=== PATIENT | male | born 1965 | race Caucasian/White ===

== ENCOUNTER 2016-10-02 19:27 | Emergency (ER) | payer BC ==
--- NOTE | 2016-10-02 20:44 | DIAGNOSTIC IMAGING REPORT ---
PROCEDURE: XR CHEST 2 VIEW INDICATION: CHEST PAIN TECHNIQUE: PA and lateral views. COMPARISON: None. FINDINGS: Allowing for overlying wires and electrodes, lungs are clear. Heart and mediastinum are normal. Thorax is normal. IMPRESSION: 1. Negative chest.
--- NOTE | 2016-10-02 22:02 | DIAGNOSTIC IMAGING REPORT ---
PROCEDURE: CTA THORAX WITH CONTRAST INDICATION: Chest pain and elevated D-dimer. TECHNIQUE: 88 ml of Isovue 370 was injected intravenously and axial images were obtained of the entire thorax with 3D sagittal and coronal MIP reconstructions. COMPARISON: Compared to chest x-ray earlier today (10/02/2016). FINDINGS: Lungs are clear. Pulmonary vessels are normal and there is no evidence of pulmonary embolus. Heart and mediastinum are normal. Thorax is normal. IMPRESSION: 1. Normal CT pulmonary arteriogram. No evidence of pulmonary embolus. 2. Findings discussed with Dr. Yash Hilton. All CT scans at this facility use dose modulation, iterative reconstruction, and/or weight-based dosing when appropriate to reduce radiation dose to as low as reasonably achievable.
--- NOTE | 2016-10-02 22:26 | ED NURSING NOTES ---
Clinical Report - Nurses [facility] [address] [place] [address] 10/02/2016 19:30 Patient: RACHELLE LEYVA TRIAGE Triage time 19:33. Chief Complaint: CHEST PAIN. --19:38 Crys Murillo R.N. 19:33 10/02/16. BP: 200/109. HR: 97. RR: 18. O2 saturation: 98%. Temp: 98.7 F (oral). Pain level now: 11/21. --19:38 Crys Murillo R.N. Weight: 118.8 kg stated. Height/Length: 72 inches Per Patient. BMI: 35.6. --19:36 Crys Murillo R.N. Medications None. --19:35 Crys Murlilo R.N. Allergies No Known Drug Allergy. --19:35 Crys Murillo R.N. History Arrived by private vehicle. Primary physician (Shira). This started last night. Reports experiencing sweating episodes. ( pt reports fatigue). No difficulty breathing or nausea. SOCIAL HX: Never smoker. Alcohol use; consumes beer occasionally. No drug use. --19:38 Crys Murillo R.N. ADDITIONAL SURGERIES: Hernia Repair. --19:36 Crys Murillo R.N. Interventions ID band on patient. --19:38 Crys Murillo R.N. PHYSICAL ASSESSMENT GENERAL / NEURO / PSYCH: Alert. Oriented X 4. Appears anxious. CVS: Normal sinus rhythm noted. Cardiac rhythm: normal sinus rhythm; (90). Heart sounds within normal limits. Pulses within normal limits. Capillary refill less than 2 seconds. EXTREMITIES: No lower extremity edema. --19:39 Crys Murillo R.N. NURSING PROGRESS NOTES 19:40 10/02/2016 Site #1 started via IV in the right antecubital space with an 20g angiocath, with aseptic technique and good blood return; one attempt. Blood drawn: rainbow set. Saline lock flushed with 10 mL saline. --19:40 Crys Murillo R.N. Patient gowned. Reassurance given. Two patient identifiers checked. Call light placed in reach. Side rails up x 1. Patient ready for evaluation- chart flagged. --19:41 Crys Murillo R.N. The patient is calm. --19:44 Crys Murillo R.N. 19:43 10/02/16. BP: 183/107. HR: 88. RR: 18. O2 saturation: 97%. Temp: deferred. Pain level now: 09/21. --19:44 Crys Murillo R.N. ( MD in room). --19:45 Crys Murillo R.N. EKG time: (1940). EKG was performed by a tech and shown to the ED physician. ( Done per protocol for patient with chief complaint of chest pain). --19:47 Benji Meraz, ER Tech1 20:11 10/02/2016 Aspirin PO Tablets 325 mg given. Allergies verified and confirmed 5 rights. --20:11 Crys Murillo R.N. property assessment monitor, pulse oximeter and NIBP monitor placed on patient. ( pt reported stabbing CP when ambulating to radiology, resolved at this time.). RESPIRATORY: No respiratory distress. CVS: The patient reports left-sided chest pain is still present and currently mild in severity and described as stabbing and lasting seconds. --20:14 Crys Murillo R.N. 20:11 10/02/16. BP: 148/108. HR: 91. RR: 18. O2 saturation: 96% on room air. Temp: deferred. Pain level now: 08/21. --20:14 Crys Murillo R.N. Two patient identifiers checked. Call light placed in reach. Side rails up x 1. --20:15 Crys Murillo R.N. Overall patient status is the same. --21:21 Crys Murillo R.N. 21:26 10/02/16. BP: 161/110. HR: 86. RR: 18. O2 saturation: 100% on nasal cannula at 2 liters/minute. Temp: deferred. Pain level now: 11/21. --21:27 Crys Murillo R.N. Patient transported to CT by stretcher with tech. (21:27). --21:28 Crys Murillo R.N. Patient returned from CT by stretcher with tech. (21:44). --21:44 Crys Murillo R.N. property assessment monitor, pulse oximeter and NIBP monitor placed on patient. ( reports started at 2200 and lasted until 2210, pain radiating from back to mid chest, MD at bedside to discuss results). CVS: The patient reports central chest pain is still present and worsening and currently moderate in severity and described as pressure-like, lasting seconds and radiating to the back. --22:21 Crys Murillo R.N. 22:16 10/02/16. BP: 167/108. HR: 87. RR: 18. O2 saturation: 96% on nasal cannula at 2 liters/minute. Pain level now: 11/21. --22:21 Crys Murillo R.N. DISPOSITION / DISCHARGE 22:36 10/02/2016 Site #1 removed upon discharge. Catheter intact. Manual pressure and bandage applied. --22:36 Crys Murillo R.N. Departure time: 2232. Condition at departure: improved. Discharge instructions provided and reviewed with the patient. Patient verbalized understanding. Written instructions provided in Thai. The patient was discharged home. He left the Emergency Department ambulatory and via private vehicle. Patient driving. --22:39 Crys Murillo R.N. 22:36 10/02/16. BP: 188/122. HR: 84. RR: 18. O2 saturation: 100% on nasal cannula at 2 liters/minute. Temp: deferred. Pain level now: 08/21. Additional comments: aware of blood pressure and ok with D/C. --22:39 Crys Murillo R.N. Locked/Released at 10/02/2016 22:39 by Crys Murillo R.N.
--- NOTE | 2016-10-02 22:26 | ED ORDER SUMMARY ---
..... Patient: RACHELLE LEYVA OrderSheet [facility] VisitID: [id number] [place] [address] 50y, M Registration Date/Time: 10/02/2016 ORDER SHEET Weight: 118.8 kg (stated) Allergies: No Known Drug Allergy GENERAL ORDERS: Blood Culture (No) (N/A) Urgent (19:52 10/02/2016 Maikel BURNS) (Ack 20:01 Te ER Tech1) (20:42 Katherynburn R.N.) Chest 2V Urgent (19:52 10/02/2016 Maikel BURNS) (Ack 20:01 Te SULTANA Tech1) (20:07 Ellen R.N.) Rotary Planer Set Up Operator (Continuous) (19:57 10/02/2016 Maikel BURNS) (Ack 20:01 Te ER Tech1) (20:07 Ellen R.N.) Cardiac Panel Stat (19:57 10/02/2016 Maikel BURNS) (Ack 20:01 Te SULTANA Tech1) (20:05 Ellen R.N.) BNP Urgent (19:57 10/02/2016 Maikel BURNS) (Ack 20:01 Te SULTANA Tech1) (20:05 Katherynburn R.N.) D-Dimer Urgent (19:57 10/02/2016 Maikel BURNS) (Ack 20:01 Te SULTANA Tech1) (20:05 Ellen R.N.) Amylase Urgent (19:57 10/02/2016 Maikel BURNS) (Ack 20:01 Te SULTANA Tech1) (20:05 Ellen R.N.) Lipase Urgent (19:57 10/02/2016 Maikel BURNS) (Ack 20:01 Te SULTANA Tech1) (20:05 Ellen R.N.) UA-Culture if indicated Urgent (19:57 10/02/2016 Maikel BURNS) (Ack 20:01 Te ER Tech1) (21:07 Art R.N.) CRP Urgent (19:57 10/02/2016 Maikel BURNS) (Ack 20:01 CHENTEurca ER Tech1) (20:05 Ellen R.N.) ESR Urgent (19:57 10/02/2016 Maikel BURNS) (Ack 20:01 IJurca ER Tech1) (20:05 Ellen R.N.) PCT (Procalcitonin) Urgent (19:57 10/02/2016 Maikel BURNS) (Ack 20:01 Te ER Tech1) (20:42 Ellen R.N.) Oxygen (2 L/min) (NC) (19:57 10/02/2016 Maikel BURNS) (Ack 20:01 Navarroa ER Tech1) (21:20 Ellen R.N.) Pulse oximeter (19:57 10/02/2016 Maikel BURNS) (Ack 20:01 Navarroa ER Tech1) (20:06 Ellen R.N.) EKG - ER Stat (19:57 10/02/2016 Maikel BURNS) (Ack 20:01 CHENTEurca ER Tech1) (20:02 IJurca ER Tech1) CTA Thorax w Cont (No) (N/A) Urgent (21:22 10/02/2016 Jax Webb) (Ack 21:26 IJurca ER Tech1) (21:47 Ellen R.N.) MEDICATION ORDERS: Aspirin PO 325 mg (NOW) (19:58 10/02/2016 Maikel BURNS) (20:11 Ellen R.N.) IV FLUIDS: IV Saline Lock (19:57 10/02/2016 Maikel BURNS) (20:06 Ellen R.N.) ORDER SHEET NOTES: [Electronically signed by Crys Murillo R.N. (22:39 10/02/2016)] [Electronically signed by Yash Hilton Dr. (07:42 10/03/2016)] [Electronically locked/signed by Crys Murillo R.N. (22:39 10/02/2016)]
--- NOTE | 2016-10-02 22:26 | ED NURSING NOTES ---
Clinical Report - Nurses [facility] [address] [place] [address] 10/02/2016 19:30 Patient: RACHELLE LEYVA TRIAGE Triage time 19:33. Chief Complaint: CHEST PAIN. --19:38 Crys Murillo R.N. 19:33 10/02/16. BP: 200/109. HR: 97. RR: 18. O2 saturation: 98%. Temp: 98.7 F (oral). Pain level now: 11/21. --19:38 Crys Murillo R.N. Weight: 118.8 kg stated. Height/Length: 72 inches Per Patient. BMI: 35.6. --19:36 Crys Murillo R.N. Medications None. --19:35 Crys Murillo R.N. Allergies No Known Drug Allergy. --19:35 Crys Murillo R.N. History Arrived by private vehicle. Primary physician (Shira). This started last night. Reports experiencing sweating episodes. ( pt reports fatigue). No difficulty breathing or nausea. SOCIAL HX: Never smoker. Alcohol use; consumes beer occasionally. No drug use. --19:38 Crys Murillo R.N. ADDITIONAL SURGERIES: Hernia Repair. --19:36 Crys Murillo R.N. Interventions ID band on patient. --19:38 Crys Murillo R.N. PHYSICAL ASSESSMENT GENERAL / NEURO / PSYCH: Alert. Oriented X 4. Appears anxious. CVS: Normal sinus rhythm noted. Cardiac rhythm: normal sinus rhythm; (90). Heart sounds within normal limits. Pulses within normal limits. Capillary refill less than 2 seconds. EXTREMITIES: No lower extremity edema. --19:39 Crys Murillo R.N. NURSING PROGRESS NOTES 19:40 10/02/2016 Site #1 started via IV in the right antecubital space with an 20g angiocath, with aseptic technique and good blood return; one attempt. Blood drawn: rainbow set. Saline lock flushed with 10 mL saline. --19:40 Crys Murillo R.N. Patient gowned. Reassurance given. Two patient identifiers checked. Call light placed in reach. Side rails up x 1. Patient ready for evaluation- chart flagged. --19:41 Crys Murillo R.N. The patient is calm. --19:44 Crys Murillo R.N. 19:43 10/02/16. BP: 183/107. HR: 88. RR: 18. O2 saturation: 97%. Temp: deferred. Pain level now: 09/21. --19:44 Crys Murillo R.N. ( MD in room). --19:45 Crys Murillo R.N. EKG time: (1940). EKG was performed by a tech and shown to the ED physician. ( Done per protocol for patient with chief complaint of chest pain). --19:47 Benji Meraz, ER Tech1 20:11 10/02/2016 Aspirin PO Tablets 325 mg given. Allergies verified and confirmed 5 rights. --20:11 Crys Murillo R.N. surveillance system monitor, pulse oximeter and NIBP monitor placed on patient. ( pt reported stabbing CP when ambulating to radiology, resolved at this time.). RESPIRATORY: No respiratory distress. CVS: The patient reports left-sided chest pain is still present and currently mild in severity and described as stabbing and lasting seconds. --20:14 Crys Murillo R.N. 20:11 10/02/16. BP: 148/108. HR: 91. RR: 18. O2 saturation: 96% on room air. Temp: deferred. Pain level now: 08/21. --20:14 Crys Murillo R.N. Two patient identifiers checked. Call light placed in reach. Side rails up x 1. --20:15 Crys Murillo R.N. Overall patient status is the same. --21:21 Crys Murillo R.N. 21:26 10/02/16. BP: 161/110. HR: 86. RR: 18. O2 saturation: 100% on nasal cannula at 2 liters/minute. Temp: deferred. Pain level now: 11/21. --21:27 Crys Murillo R.N. Patient transported to CT by stretcher with tech. (21:27). --21:28 Crys Murillo R.N. Patient returned from CT by stretcher with tech. (21:44). --21:44 Crys Murillo R.N. surveillance system monitor, pulse oximeter and NIBP monitor placed on patient. ( reports started at 2200 and lasted until 2210, pain radiating from back to mid chest, MD at bedside to discuss results). CVS: The patient reports central chest pain is still present and worsening and currently moderate in severity and described as pressure-like, lasting seconds and radiating to the back. --22:21 Crys Murillo R.N. 22:16 10/02/16. BP: 167/108. HR: 87. RR: 18. O2 saturation: 96% on nasal cannula at 2 liters/minute. Pain level now: 11/21. --22:21 Crys Murillo R.N. DISPOSITION / DISCHARGE 22:36 10/02/2016 Site #1 removed upon discharge. Catheter intact. Manual pressure and bandage applied. --22:36 Crys Murillo R.N. Departure time: 2232. Condition at departure: improved. Discharge instructions provided and reviewed with the patient. Patient verbalized understanding. Written instructions provided in Romanian. The patient was discharged home. He left the Emergency Department ambulatory and via private vehicle. Patient driving. --22:39 Crys Murillo R.N. 22:36 10/02/16. BP: 188/122. HR: 84. RR: 18. O2 saturation: 100% on nasal cannula at 2 liters/minute. Temp: deferred. Pain level now: 08/21. Additional comments: aware of blood pressure and ok with D/C. --22:39 Crys Murillo R.N. Locked/Released at 10/02/2016 22:39 by Crys Murillo R.N.
--- NOTE | 2016-10-02 22:26 | ED ORDER SUMMARY ---
..... Patient: RACHELLE LEYVA OrderSheet [facility] VisitID: [id number] [place] [address] 50y, M Registration Date/Time: 10/02/2016 ORDER SHEET Weight: 118.8 kg (stated) Allergies: No Known Drug Allergy GENERAL ORDERS: Blood Culture (No) (N/A) Urgent (19:52 10/02/2016 Maikel BURNS) (Ack 20:01 Te ER Tech1) (20:42 Katherynburn R.N.) Chest 2V Urgent (19:52 10/02/2016 Maikel BURNS) (Ack 20:01 Te SULTANA Tech1) (20:07 Ellen R.N.) Student Activities Director (Continuous) (19:57 10/02/2016 Maikel BURNS) (Ack 20:01 Te ER Tech1) (20:07 Ellen R.N.) Cardiac Panel Stat (19:57 10/02/2016 Maikel BURNS) (Ack 20:01 Te SULTANA Tech1) (20:05 Ellen R.N.) BNP Urgent (19:57 10/02/2016 Maikel BURNS) (Ack 20:01 Te SULTANA Tech1) (20:05 Katherynburn R.N.) D-Dimer Urgent (19:57 10/02/2016 Maikel UBRNS) (Ack 20:01 Te SULTANA Tech1) (20:05 Ellen R.N.) Amylase Urgent (19:57 10/02/2016 Maikel BURNS) (Ack 20:01 Te SULTANA Tech1) (20:05 Ellen R.N.) Lipase Urgent (19:57 10/02/2016 Maikel BURNS) (Ack 20:01 Te SULTANA Tech1) (20:05 Ellen R.N.) UA-Culture if indicated Urgent (19:57 10/02/2016 Maikel BURNS) (Ack 20:01 Te ER Tech1) (21:07 Art R.N.) CRP Urgent (19:57 10/02/2016 Maikel BURNS) (Ack 20:01 CHENTEurca ER Tech1) (20:05 Ellen R.N.) ESR Urgent (19:57 10/02/2016 Maikel BURNS) (Ack 20:01 IJurca ER Tech1) (20:05 Ellen R.N.) PCT (Procalcitonin) Urgent (19:57 10/02/2016 Maikel BURNS) (Ack 20:01 Te ER Tech1) (20:42 Ellen R.N.) Oxygen (2 L/min) (NC) (19:57 10/02/2016 Maikel BURNS) (Ack 20:01 Navarroa ER Tech1) (21:20 Ellen R.N.) Pulse oximeter (19:57 10/02/2016 Maikel BURNS) (Ack 20:01 Navarroa ER Tech1) (20:06 Ellen R.N.) EKG - ER Stat (19:57 10/02/2016 Maikel BURNS) (Ack 20:01 CHENTEurca ER Tech1) (20:02 IJurca ER Tech1) CTA Thorax w Cont (No) (N/A) Urgent (21:22 10/02/2016 Jax Webb) (Ack 21:26 IJurca ER Tech1) (21:47 Ellen R.N.) MEDICATION ORDERS: Aspirin PO 325 mg (NOW) (19:58 10/02/2016 Maikel BURNS) (20:11 Ellen R.N.) IV FLUIDS: IV Saline Lock (19:57 10/02/2016 Maikel BURNS) (20:06 Ellen R.N.) ORDER SHEET NOTES: [Electronically signed by Crys Murillo R.N. (22:39 10/02/2016)] [Electronically signed by Yash Hilton Dr. (07:42 10/03/2016)] [Electronically locked/signed by Crys Murillo R.N. (22:39 10/02/2016)]
--- NOTE | 2016-10-02 22:26 | ED CLINICAL REPORT ---
Clinical Report - Physicians/Mid Levels [facility] [address] [place] [address] 10/02/2016 19:30 Patient: RACHELLE LEYVA Time Seen: 19:40 Oct 02 2016. Arrived- By private vehicle. Historian- patient. HISTORY OF PRESENT ILLNESS Chief Complaint: CHEST PAIN. At its maximum, severity described as moderate. Modifying factors. Not worsened by anything. Not relieved by anything. This started last night and is still present (unchanged). It was abrupt in onset and has been constant but is not gone now. Onset during rest. It is described as located in the central chest and left chest area. (states he accidentally slept on his left side on on his arm. reports no hemoptysis, leg swelling, recent surgery/trauma, or immobilization.). He has experienced diaphoresis. Similar symptoms previously: None. Recent medical care: Not recently seen/assessed. REVIEW OF SYSTEMS No fever, chills, pedal edema or calf pain. All systems otherwise negative, except as recorded above. PAST HISTORY See nurses notes. Hernia Repair. No history of heart disease, lung disease, hypertension, hyperlipidemia or diabetes mellitus. Denies the following risk factors for DVT/PE - history of DVT and pulmonary embolism, recent surgery, recent UT and congestive heart failure. Denies the following risk factors for DVT/PE - cancer, clotting disorder, estrogens, obesity and immobility. Denies the following risk factors for DVT/PE - advanced in age and vena cava filter. Medications: None. Allergies: No Known Drug Allergy. SOCIAL HISTORY Never smoker. Occasional alcohol use; consumes beer. No drug use. No recent travel. Is a local resident. ADDITIONAL NOTES The nursing notes have been reviewed. PHYSICAL EXAM Vital Signs: 10/02/2016 19:33 BP: 200/109. HR: 97. RR: 18. O2 saturation: 98%. Temp: 98.7 F. Pain level now: 6/10. Appearance: Alert. Anxious. Patient in mild distress. Eyes: Eyes normal inspection. ENT: Pharynx normal. Neck: Normal inspection. Neck supple. CVS: Normal heart rate and rhythm. Heart sounds normal. Pulses normal. No cardiac murmur. Respiratory: No respiratory distress. Chest pain reproducible with palpation of the costal cartilage, costochondral junction and anterior chest wall, with movement of the trunk and with deep breathing (Also tender over the left costal margin to palpation anterior axillary line.). Breath sounds normal. Abdomen: Soft and nontender. Back: Normal external inspection. Skin: Skin warm. Normal skin color. No rash. Moderate diaphoresis. Extremities: Extremities exhibit normal ROM. No lower extremity edema. Neuro: Oriented X 3. No motor deficit. No sensory deficit. LABS, X-RAYS, AND EKG EKG: Normal sinus rhythm. Normal P waves. Normal ODETTE. Normal QRS complex. Normal axis. Non-specific ST segment / T wave abnormalities. Prior EKG unavailable. The study has been interpreted contemporaneously. The study has been independently viewed by me. The EKG appears to be a good tracing. Chest X-ray: (PROCEDURE: XR CHEST 2 VIEW INDICATION: CHEST PAIN TECHNIQUE: PA and lateral views. COMPARISON: None. FINDINGS: Allowing for overlying wires and electrodes, lungs are clear. Heart and mediastinum are normal. Thorax is normal. IMPRESSION: 1. Negative chest.). Chest CT: (PROCEDURE: CTA THORAX WITH CONTRAST INDICATION: Chest pain and elevated D-dimer. TECHNIQUE: 88 ml of Isovue 370 was injected intravenously and axial images were obtained of the entire thorax with 3D sagittal and coronal MIP reconstructions. COMPARISON: Compared to chest x-ray earlier today (10/02/2016). FINDINGS: Lungs are clear. Pulmonary vessels are normal and there is no evidence of pulmonary embolus. Heart and mediastinum are normal. Thorax is normal. IMPRESSION: 1. Normal CT pulmonary arteriogram. No evidence of pulmonary embolus.). Chest CT performed with contrast. The study was independently viewed by me and interpreted by the radiologist. The study was discussed with the radiologist (via pacs and phone). Laboratory Tests: UA-Culture if indicated: (YOVANI: 10/02/2016 21:01) ( MsgRcvd 10/02/2016 21:31) Final results Test Result Flag Units (Reference) URINE COLOR MARIAELENA URINE APPEARANCE CLEAR URINE GLUCOSE NEGATIVE (NEGATIVE) URINE BILIRUBIN ICTOTEST NEGATIVE (NEGATIVE) URINE KETONE 1+ (NEGATIVE) URINE SPECIFIC GRAVITY >= 1.030 (1.010-1.030) URINE PH 5.5 (5.0-8.0) URINE PROTEIN 2+ (NEGATIVE) URINE UROBILINOGEN 1.0 EU/dL (0.2-1.0) URINE NITRITE NEGATIVE (NEGATIVE) URINE BLOOD NEGATIVE (NEGATIVE) URINE LEUK ESTERASE NEGATIVE (NEGATIVE) URINE RBC 3-5 rbc/hpf (0-1) URINE WBC 1-3 wbc/hpf (0-1) URINE EPITHELIAL CELLS 0-1 EPI/hpf (0-5) URINE BACTERIA FEW (1+) (NONE SEEN) URINE COMMENT CULT NOT INDICATED 4+ MUCOUSURINE CULTURES ARE SET-UP BASED ON THE FOLLOWING CRITERIA:POSITIVE NITRITEPOSITIVE LEUKOCYTE ESTERASEGREATER THAN 10 WHITE BLOOD CELLSMODERATE (2+) OR GREATER BACTERIA ESR: (YOVANI: 10/02/2016 19:33) ( [facility] 10/02/2016 20:49) Final results Test Result Flag Units (Reference) SED RATE WESTERGREN 12 mm/hr (0-20) CBC w Diff: (YOVANI: 10/02/2016 19:33) ( [facility] 10/02/2016 20:13) Final results Test Result Flag Units (Reference) WHITE BLOOD COUNT 6.8 K/uL (4.5-11.5) RED BLOOD COUNT 4.96 M/uL (4.50-5.90) HEMOGLOBIN 14.8 gm/dL (13.5-17.5) HEMATOCRIT 43.7 % (41.0-53.0) MEAN CELL VOLUME 88 fL (80-100) MEAN CORPUSCULAR HGB 30 pg (26-34) MEAN CORPUSCULAR HGB CONC 34 g/dL (31-37) RED CELL DISTRIBUTION WIDTH 12.8 % (11.6-14.8) PLATELET COUNT 117 L K/uL (150-400) NEUTROPHIL % 65.7 % (50-75) LYMPH % 20.6 L % (25-40) MONO % 10.5 % (3-14) EOSINOPHIL % 3.0 % (0-4) BASOPHIL % 0.2 % (0-2) [id number]: (YOVANI: 10/02/2016 19:33) ( MsgRcvd 10/02/2016 20:25) Final results Test Result Flag Units (Reference) D-DIMER QUANTITATIVE 1.84 H ug/mLFEU (0.27-0.52) The primary value of this quantitative assay relates toits negative predictive value (i.e. exclusion) of pulmonaryembolism/deep vein thrombosis/DIC.Elevated levels of d-dimer may also occur with:, age, cancer, inflammation, liver disease,post-op, infection, hematoma, coronary disease, peripheralarteriopathy, bleeding disorders and thrombolytic treatment.Results should be correlated with other clinical andradiological data.Testing Methodology: Latex Immunoassay BNP: (YOVANI: 10/02/2016 19:33) ( [facility] 10/02/2016 20:46) Final results Test Result Flag Units (Reference) B-TYPE NATRIURETIC PEPTIDE 43.0 pg/ml (5-100) [id number]: (YOVANI: 10/02/2016 19:33) ( [facility] 10/02/2016 20:47) Final results Test Result Flag Units (Reference) PROCALCITONIN 0.2 ng/mL (0-0.5) PCT Concentration: Interpretation : Risk/option for action PCT <=0.5 ng/mL : Systemic : Low risk forinfection(sepsis): progression to severeis not likely. : systemic infection.Local bacterial : CAUTION-PCT levelsinfection is : below 0.5 ng/mL do notpossible. : exclude an infection,because localizedinfections (withoutsystemic signs) may beassociated with suchlow levels. If PCT ismeasured very earlyafter a bacterialchallenge (usually <6hours), these valuesmay still be low. Inthis case PCT shouldbe re-assessed 6-24hours later. PCT >0.5 and : Systemic infection: Moderate risk for<= 2 ng/mL : (sepsis) is : progression to severepossible, but : systemic infection.other conditions : The patient should beare known to : closely monitoredelevate PCT. : both clinically andby re-assessing PCTwithin 6-24 hours. PCT > 2 ng/mL : Systemic infection: High risk for(sepsis) is likely: progression to severeunless other : systemic infection.causes are known. : PCT >= 10 ng/mL : Important systemic: High likelihood ofinflammatory : severe sepsis orresponse, almost : septic shock.exclusively due to:severe bacterial :sepsis or septic :shock. : Lipase: (YOVANI: 10/02/2016 19:33) ( [facility] 10/02/2016 20:31) Final results Test Result Flag Units (Reference) LIPASE 127 U/L (73-393) AMYLASE 59 U/L (25-115) C-REACTIVE PROTEIN 15.3 H mg/dL (0.0-0.9) CHEM 13 PANEL: (YOVANI: 10/02/2016 19:33) ( [facility] 10/02/2016 20:48) Final results Test Result Flag Units (Reference) GLUCOSE 121 H mg/dL (70-110) BUN 15 mg/dL (7-18) CREATININE 1.1 mg/dL (0.6-1.3) Estimated GFR >60 mL/min Estimated GFR- >60 mL/min Note: Persistent reduction over 3 months in eGFR<60 mL/min/1.73 m2 defines CKD. Patients with eGFR values>=60 mL/min/1.73 m2 may also have CKD if evidence ofpersistent proteinuria. Additional information may be foundat www.kidney.org. SODIUM 140 mmol/L (136-145) POTASSIUM 3.5 mmol/L (3.5-5.1) CHLORIDE 102 mmol/L (98-107) CARBON DIOXIDE 29 mmol/L (21-32) CALCIUM 9.1 mg/dL (8.5-10.1) TOTAL PROTEIN 7.8 g/dL (6.4-8.2) ALBUMIN 3.9 g/dL (3.3-5.0) BILIRUBIN, TOTAL 0.7 mg/dL (0.0-1.0) ALKALINE PHOSPHATASE 106 U/L (46-116) AST (SGOT) 33 U/L (15-37) ALT (SGPT) 32 U/L (12-78) CPK 99 U/L (24-260) MAGNESIUM 1.9 mg/dL (1.8-2.4) TROPONIN I 0.07 ng/mL (0.00-1.5) TROPONIN REFERENCE RANGE:<0.1 NEGATIVE0.1-1.5 INDETERMINANT>1.5 POSITIVE . PROGRESS AND PROCEDURES Course of Care: Heplock ASA 325 mg po the patient is a pleasant 50-year-old male with no pertinent past medical history presenting for a 5 for chest pain. The patient has been evaluated by me. I performed my own independent physical examination and agree with the prior physician's assessment and plan. I have taken over at the change of shift. Positive follow-up on the patient's laboratory studies. Patient is noted to be a low risk for cardiac etiology for his pain. Patient with atypical chest pain as he has reproducible pain on the left chest. D-dimer is noted to be elevated. CT of the patient's chest with pulmonary embolism protocol ordered. CT scan of the patient's chest did not show any signs of acute pulmonary embolism or pneumonia. No signs of thoracic aortic dissection. Patient with a negative workup. Troponin 1 has been ordered and because of the patient's pain symptom, do not feel a repeat troponin is needed at this time. Patient with greater than 8 hours of pain. Had a discussion with the patient in regards to symptoms here in the emergency department today. Patient is wondering if he could've had the discomfort because he had slept on his left arm last night. Discussed with the patient that this is a possibility however because of the patient's chest pain here in the emergency department would need to have to follow up with cardiology for further risk stratification. Patient is otherwise at low risk at this time given his negative workup in the emergency department and negative imaging studies. Discussed with the patient here in the emergency department his workup here in emergency department as well as diagnosis, home care, follow-up, and return precautions. All questions have been answered. The patient expressed understanding of these instructions and was agreeable to them. Prior to patient's departure from the emergency department is noted to be resting in bed and in no acute distress. Patient is a laboratory without any discomfort. Patient is a good outpatient candidate. Patient appears to be reliable. CLINICAL IMPRESSION Chest pain characterized as "discomfort" .12 lead EKG performed. (left sided). 10/02/2016 22:16 BP: 167/108. HR: 87. RR: 18. O2 saturation: 96%. Pain level now: 10. Hypertensive. Oxygen saturation normal. Essential hypertension. INSTRUCTIONS Warnings: GENERAL WARNINGS: Return or contact your physician immediately if your condition worsens or changes unexpectedly, if not improving as expected, or if other problems arise. SPECIFICALLY, return if you develop chest, neck, jaw, shoulder, arm, or back pain, difficulty breathing, a fluttering sensation in your chest, lightheadedness, fainting, excessive fatigue, or sudden sweating. Your Current Medications: CONTINUE TAKING THE FOLLOWING MEDICATIONS: None*. OTC Medications: Aspirin 81 mg (available over the counter): take 1 orally every 24 hours. Dispense thirty (30). No refills. Follow-up: Return to the emergency department as needed. Follow up with your doctor in three days. Reason for referral: recheck today's concerns. Summary of care provided to patient via paper. Screening today revealed the patient's blood pressure to be in the normal range. The patient should follow up with a primary care provider for blood pressure management. Understanding of the discharge instructions verbalized by patient. Follow-up with: Diana Ramos MD, Cardiology, , [facility] [facility], [address], [facility], [address]; Marck Ruiz MD, Cardiology, , [facility], [address], [facility], [address] Follow up in three days. Reason for referral: Recheck today's concerns. Summary of care provided to patient. left message on phone voice mail. (Electronically signed by Yash Hilton Dr. 10/03/2016 7:42) Addenda for RACHELLE LEYVA VisitID: [id number] Date: 10/02/2016 10/03/2016 7:38 Called patient. Gave cardiology's follow up number on message system. (Electronically signed by Yash Hilton Dr. - 10/03/2016 7:38)
--- NOTE | 2016-10-02 22:26 | ED CLINICAL REPORT ---
Clinical Report - Physicians/Mid Levels [facility] [address] [place] [address] 10/02/2016 19:30 Patient: RACHELLE LEYVA Time Seen: 19:40 Oct 02 2016. Arrived- By private vehicle. Historian- patient. HISTORY OF PRESENT ILLNESS Chief Complaint: CHEST PAIN. At its maximum, severity described as moderate. Modifying factors. Not worsened by anything. Not relieved by anything. This started last night and is still present (unchanged). It was abrupt in onset and has been constant but is not gone now. Onset during rest. It is described as located in the central chest and left chest area. (states he accidentally slept on his left side on on his arm. reports no hemoptysis, leg swelling, recent surgery/trauma, or immobilization.). He has experienced diaphoresis. Similar symptoms previously: None. Recent medical care: Not recently seen/assessed. REVIEW OF SYSTEMS No fever, chills, pedal edema or calf pain. All systems otherwise negative, except as recorded above. PAST HISTORY See nurses notes. Hernia Repair. No history of heart disease, lung disease, hypertension, hyperlipidemia or diabetes mellitus. Denies the following risk factors for DVT/PE - history of DVT and pulmonary embolism, recent surgery, recent ND and congestive heart failure. Denies the following risk factors for DVT/PE - cancer, clotting disorder, estrogens, obesity and immobility. Denies the following risk factors for DVT/PE - advanced in age and vena cava filter. Medications: None. Allergies: No Known Drug Allergy. SOCIAL HISTORY Never smoker. Occasional alcohol use; consumes beer. No drug use. No recent travel. Is a local resident. ADDITIONAL NOTES The nursing notes have been reviewed. PHYSICAL EXAM Vital Signs: 10/02/2016 19:33 BP: 200/109. HR: 97. RR: 18. O2 saturation: 98%. Temp: 98.7 F. Pain level now: 6/10. Appearance: Alert. Anxious. Patient in mild distress. Eyes: Eyes normal inspection. ENT: Pharynx normal. Neck: Normal inspection. Neck supple. CVS: Normal heart rate and rhythm. Heart sounds normal. Pulses normal. No cardiac murmur. Respiratory: No respiratory distress. Chest pain reproducible with palpation of the costal cartilage, costochondral junction and anterior chest wall, with movement of the trunk and with deep breathing (Also tender over the left costal margin to palpation anterior axillary line.). Breath sounds normal. Abdomen: Soft and nontender. Back: Normal external inspection. Skin: Skin warm. Normal skin color. No rash. Moderate diaphoresis. Extremities: Extremities exhibit normal ROM. No lower extremity edema. Neuro: Oriented X 3. No motor deficit. No sensory deficit. LABS, X-RAYS, AND EKG EKG: Normal sinus rhythm. Normal P waves. Normal ODETTE. Normal QRS complex. Normal axis. Non-specific ST segment / T wave abnormalities. Prior EKG unavailable. The study has been interpreted contemporaneously. The study has been independently viewed by me. The EKG appears to be a good tracing. Chest X-ray: (PROCEDURE: XR CHEST 2 VIEW INDICATION: CHEST PAIN TECHNIQUE: PA and lateral views. COMPARISON: None. FINDINGS: Allowing for overlying wires and electrodes, lungs are clear. Heart and mediastinum are normal. Thorax is normal. IMPRESSION: 1. Negative chest.). Chest CT: (PROCEDURE: CTA THORAX WITH CONTRAST INDICATION: Chest pain and elevated D-dimer. TECHNIQUE: 88 ml of Isovue 370 was injected intravenously and axial images were obtained of the entire thorax with 3D sagittal and coronal MIP reconstructions. COMPARISON: Compared to chest x-ray earlier today (10/02/2016). FINDINGS: Lungs are clear. Pulmonary vessels are normal and there is no evidence of pulmonary embolus. Heart and mediastinum are normal. Thorax is normal. IMPRESSION: 1. Normal CT pulmonary arteriogram. No evidence of pulmonary embolus.). Chest CT performed with contrast. The study was independently viewed by me and interpreted by the radiologist. The study was discussed with the radiologist (via pacs and phone). Laboratory Tests: UA-Culture if indicated: (YOVANI: 10/02/2016 21:01) ( MsgRcvd 10/02/2016 21:31) Final results Test Result Flag Units (Reference) URINE COLOR MARIAELENA URINE APPEARANCE CLEAR URINE GLUCOSE NEGATIVE (NEGATIVE) URINE BILIRUBIN ICTOTEST NEGATIVE (NEGATIVE) URINE KETONE 1+ (NEGATIVE) URINE SPECIFIC GRAVITY >= 1.030 (1.010-1.030) URINE PH 5.5 (5.0-8.0) URINE PROTEIN 2+ (NEGATIVE) URINE UROBILINOGEN 1.0 EU/dL (0.2-1.0) URINE NITRITE NEGATIVE (NEGATIVE) URINE BLOOD NEGATIVE (NEGATIVE) URINE LEUK ESTERASE NEGATIVE (NEGATIVE) URINE RBC 3-5 rbc/hpf (0-1) URINE WBC 1-3 wbc/hpf (0-1) URINE EPITHELIAL CELLS 0-1 EPI/hpf (0-5) URINE BACTERIA FEW (1+) (NONE SEEN) URINE COMMENT CULT NOT INDICATED 4+ MUCOUSURINE CULTURES ARE SET-UP BASED ON THE FOLLOWING CRITERIA:POSITIVE NITRITEPOSITIVE LEUKOCYTE ESTERASEGREATER THAN 10 WHITE BLOOD CELLSMODERATE (2+) OR GREATER BACTERIA ESR: (YOVANI: 10/02/2016 19:33) ( [facility] 10/02/2016 20:49) Final results Test Result Flag Units (Reference) SED RATE WESTERGREN 12 mm/hr (0-20) CBC w Diff: (YOVANI: 10/02/2016 19:33) ( [facility] 10/02/2016 20:13) Final results Test Result Flag Units (Reference) WHITE BLOOD COUNT 6.8 K/uL (4.5-11.5) RED BLOOD COUNT 4.96 M/uL (4.50-5.90) HEMOGLOBIN 14.8 gm/dL (13.5-17.5) HEMATOCRIT 43.7 % (41.0-53.0) MEAN CELL VOLUME 88 fL (80-100) MEAN CORPUSCULAR HGB 30 pg (26-34) MEAN CORPUSCULAR HGB CONC 34 g/dL (31-37) RED CELL DISTRIBUTION WIDTH 12.8 % (11.6-14.8) PLATELET COUNT 117 L K/uL (150-400) NEUTROPHIL % 65.7 % (50-75) LYMPH % 20.6 L % (25-40) MONO % 10.5 % (3-14) EOSINOPHIL % 3.0 % (0-4) BASOPHIL % 0.2 % (0-2) [id number]: (YOVANI: 10/02/2016 19:33) ( MsgRcvd 10/02/2016 20:25) Final results Test Result Flag Units (Reference) D-DIMER QUANTITATIVE 1.84 H ug/mLFEU (0.27-0.52) The primary value of this quantitative assay relates toits negative predictive value (i.e. exclusion) of pulmonaryembolism/deep vein thrombosis/DIC.Elevated levels of d-dimer may also occur with:, age, cancer, inflammation, liver disease,post-op, infection, hematoma, coronary disease, peripheralarteriopathy, bleeding disorders and thrombolytic treatment.Results should be correlated with other clinical andradiological data.Testing Methodology: Latex Immunoassay BNP: (YOVANI: 10/02/2016 19:33) ( [facility]46[facility] Final results Test Result Flag Units (Reference) B-TYPE NATRIURETIC PEPTIDE 43.0 pg/ml (5-100) [id number]: (YOVANI: 10/02/2016 19:33) ( [facility] [place] 10/02/2016 20:47) Final results Test Result Flag Units (Reference) PROCALCITONIN 0.2 ng/mL (0-0.5) PCT Concentration: Interpretation : Risk/option for action PCT <=0.5 ng/mL : Systemic : Low risk forinfection(sepsis): progression to severeis not likely. : systemic infection.Local bacterial : CAUTION-PCT levelsinfection is : below 0.5 ng/mL do notpossible. : exclude an infection,because localizedinfections (withoutsystemic signs) may beassociated with suchlow levels. If PCT ismeasured very earlyafter a bacterialchallenge (usually <6hours), these valuesmay still be low. Inthis case PCT shouldbe re-assessed 6-24hours later. PCT >0.5 and : Systemic infection: Moderate risk for<= 2 ng/mL : (sepsis) is : progression to severepossible, but : systemic infection.other conditions : The patient should beare known to : closely monitoredelevate PCT. : both clinically andby re-assessing PCTwithin 6-24 hours. PCT > 2 ng/mL : Systemic infection: High risk for(sepsis) is likely: progression to severeunless other : systemic infection.causes are known. : PCT >= 10 ng/mL : Important systemic: High likelihood ofinflammatory : severe sepsis orresponse, almost : septic shock.exclusively due to:severe bacterial :sepsis or septic :shock. : Lipase: (YOVANI: 10/02/2016 19:33) ( [facility] 10/02/2016 20:31) Final results Test Result Flag Units (Reference) LIPASE 127 U/L (73-393) AMYLASE 59 U/L (25-115) C-REACTIVE PROTEIN 15.3 H mg/dL (0.0-0.9) CHEM 13 PANEL: (YOVANI: 10/02/2016 19:33) ( [facility] [place] 10/02/2016 20:48) Final results Test Result Flag Units (Reference) GLUCOSE 121 H mg/dL (70-110) BUN 15 mg/dL (7-18) CREATININE 1.1 mg/dL (0.6-1.3) Estimated GFR >60 mL/min Estimated GFR- >60 mL/min Note: Persistent reduction over 3 months in eGFR<60 mL/min/1.73 m2 defines CKD. Patients with eGFR values>=60 mL/min/1.73 m2 may also have CKD if evidence ofpersistent proteinuria. Additional information may be foundat www.kidney.org. SODIUM 140 mmol/L (136-145) POTASSIUM 3.5 mmol/L (3.5-5.1) CHLORIDE 102 mmol/L (98-107) CARBON DIOXIDE 29 mmol/L (21-32) CALCIUM 9.1 mg/dL (8.5-10.1) TOTAL PROTEIN 7.8 g/dL (6.4-8.2) ALBUMIN 3.9 g/dL (3.3-5.0) BILIRUBIN, TOTAL 0.7 mg/dL (0.0-1.0) ALKALINE PHOSPHATASE 106 U/L (46-116) AST (SGOT) 33 U/L (15-37) ALT (SGPT) 32 U/L (12-78) CPK 99 U/L (24-260) MAGNESIUM 1.9 mg/dL (1.8-2.4) TROPONIN I 0.07 ng/mL (0.00-1.5) TROPONIN REFERENCE RANGE:<0.1 NEGATIVE0.1-1.5 INDETERMINANT>1.5 POSITIVE . PROGRESS AND PROCEDURES Course of Care: Heplock ASA 325 mg po the patient is a pleasant 50-year-old male with no pertinent past medical history presenting for a 5 for chest pain. The patient has been evaluated by me. I performed my own independent physical examination and agree with the prior physician's assessment and plan. I have taken over at the change of shift. Positive follow-up on the patient's laboratory studies. Patient is noted to be a low risk for cardiac etiology for his pain. Patient with atypical chest pain as he has reproducible pain on the left chest. D-dimer is noted to be elevated. CT of the patient's chest with pulmonary embolism protocol ordered. CT scan of the patient's chest did not show any signs of acute pulmonary embolism or pneumonia. No signs of thoracic aortic dissection. Patient with a negative workup. Troponin 1 has been ordered and because of the patient's pain symptom, do not feel a repeat troponin is needed at this time. Patient with greater than 8 hours of pain. Had a discussion with the patient in regards to symptoms here in the emergency department today. Patient is wondering if he could've had the discomfort because he had slept on his left arm last night. Discussed with the patient that this is a possibility however because of the patient's chest pain here in the emergency department would need to have to follow up with cardiology for further risk stratification. Patient is otherwise at low risk at this time given his negative workup in the emergency department and negative imaging studies. Discussed with the patient here in the emergency department his workup here in emergency department as well as diagnosis, home care, follow-up, and return precautions. All questions have been answered. The patient expressed understanding of these instructions and was agreeable to them. Prior to patient's departure from the emergency department is noted to be resting in bed and in no acute distress. Patient is a laboratory without any discomfort. Patient is a good outpatient candidate. Patient appears to be reliable. CLINICAL IMPRESSION Chest pain characterized as "discomfort" .12 lead EKG performed. (left sided). 10/02/2016 22:16 BP: 167/108. HR: 87. RR: 18. O2 saturation: 96%. Pain level now: 10. Hypertensive. Oxygen saturation normal. Essential hypertension. INSTRUCTIONS Warnings: GENERAL WARNINGS: Return or contact your physician immediately if your condition worsens or changes unexpectedly, if not improving as expected, or if other problems arise. SPECIFICALLY, return if you develop chest, neck, jaw, shoulder, arm, or back pain, difficulty breathing, a fluttering sensation in your chest, lightheadedness, fainting, excessive fatigue, or sudden sweating. Your Current Medications: CONTINUE TAKING THE FOLLOWING MEDICATIONS: None*. OTC Medications: Aspirin 81 mg (available over the counter): take 1 orally every 24 hours. Dispense thirty (30). No refills. Follow-up: Return to the emergency department as needed. Follow up with your doctor in three days. Reason for referral: recheck today's concerns. Summary of care provided to patient via paper. Screening today revealed the patient's blood pressure to be in the normal range. The patient should follow up with a primary care provider for blood pressure management. Understanding of the discharge instructions verbalized by patient. Follow-up with: Diana Ramos MD, Cardiology, , [facility], [address], [facility], [address]; Marck Ruiz MD, Cardiology, , [facility], [address], [facility], [address] Follow up in three days. Reason for referral: Recheck today's concerns. Summary of care provided to patient. left message on phone voice mail. (Electronically signed by Yash Hilton Dr. 10/03/2016 7:42) Addenda for RACHELLE LEYVA VisitID: [id number] Date: 10/02/2016 10/03/2016 7:38 Called patient. Gave cardiology's follow up number on message system. (Electronically signed by Yash Hilton Dr. - 10/03/2016 7:38)
--- NOTE | 2016-10-03 07:42 | ED DISCHARGE INSTRUCTIONS ---
Patient: RACHELLE LEYVA General Instructions [facility] VisitID: [id number] [address] [place] [address] 50y, M Registration Date/Time: 10/02/2016 Chest pain characterized as "discomfort" .12 lead EKG performed. (left sided). 10/02/2016 22:16 BP: 167/108. HR: 87. RR: 18. O2 saturation: 96%. Pain level now: 11/21. Hypertensive. Oxygen saturation normal. Essential hypertension. INSTRUCTIONS Warnings: GENERAL WARNINGS: Return or contact your physician immediately if your condition worsens or changes unexpectedly, if not improving as expected, or if other problems arise. SPECIFICALLY, return if you develop chest, neck, jaw, shoulder, arm, or back pain, difficulty breathing, a fluttering sensation in your chest, lightheadedness, fainting, excessive fatigue, or sudden sweating. Your Current Medications: CONTINUE TAKING THE FOLLOWING MEDICATIONS: None*. OTC Medications: Aspirin 81 mg (available over the counter): take 1 orally every 24 hours. Dispense thirty (30). No refills. Follow-up: Return to the emergency department as needed. Follow up with your doctor in three days. Reason for referral: recheck today's concerns. Summary of care provided to patient via paper. Screening today revealed the patient's blood pressure to be in the normal range. The patient should follow up with a primary care provider for blood pressure management. Understanding of the discharge instructions verbalized by patient. Follow-up with: Diana Ramos MD, Cardiology, , [facility], [address] [place] [address], [place] [phone]; Marck Ruiz MD, Cardiology, , [facility], [address] [phone] Follow up in three days. Reason for referral: Recheck today's concerns. Summary of care provided to patient. left message on phone voice mail. ADDITIONAL INFORMATION Chest Pain, Uncertain Cause Chest pain can happen for a number of reasons. Sometimes the cause can not be determined. If yourcondition does not seem serious, and your pain does not appear to be coming from your heart, your doctor may recommend watching it closely. Sometimes the signs of a serious problem take more time to appear. Therefore, watch for the warning signs listed below. Home care After your visit, follow these recommendations: Rest today and avoid strenuous activity. Take any prescribed medicine as directed. Follow-up care Follow up with your doctor or this facility as instructed or if you do not start to feel better within 24 hours. Call 911 Get immediate medical attention if any of the following occur: A change in the type of pain: if it feels different, becomes more severe, lasts longer, or begins to spread into your shoulder, arm, neck, jaw or back Shortness of breath or increased pain with breathing Weakness, dizziness, or fainting Rapid heart beat Get prompt medical attention Call your doctor right away if any of the following occur: Cough with dark colored sputum (phlegm) or blood Fever of 100.4F(38C) or higher, or as directed by your health care provider Swelling, pain or redness in one leg High Blood Pressure -- To Be Confirmed [No Tx] Your blood pressure was higher today than normal. Sometimes anxiety or pain can cause a temporary rise in blood pressure that later returns to normal. If your blood pressure is high on one measurement, this does not mean that you have hypertension (a chronic illness). However, you must have your blood pressure measured again within the next few days to find out if its still high. A normal blood pressure is 120/80 or less. The first (top) number is the "systolic" pressure. The second (bottom) number is the "diastolic" pressure. Hypertension exists when either the top number is 140 or higher, OR the bottom number is 90 or higher on repeated measurements. Blood pressure in the range of 120-140 (systolic) or 80-89 (diastolic) is considered "pre-hypertension". This means your are at risk for getting hypertension. You should have regular blood pressure checks to be sure your blood pressure is not rising. Home Care: Measure your blood pressure on 3 different days and write down the results. This can be done at your doctor's office or this facility. Some pharmacies and grocery stores offer automated blood pressure machines for your use. Follow Up: If your blood pressure is "high" (over 120/80) on 2 out of 3 days, you will need to follow up with your doctor for further evaluation and treatment. DO NOT PUT THIS OFF! Untreated high blood pressure increases the risk for heart attack, also known as acute myocardial infarction, or AMI, and stroke. It is a treatable condition. Get Prompt Medical Attention if any of the following occur: Chest pain or shortness of breath Severe headache Throbbing or rushing sound in the ears Nosebleed Sudden severe abdominal pain Extreme drowsiness, confusion or fainting Dizziness or vertigo (dizziness with spinning sensation) Weakness of an arm or leg or one side of the face Difficulty with speech or vision Aspirin Oral tablet What is this medicine? ASPIRIN ( pir in) is a pain reliever. It is used to treat mild pain and fever. This medicine is also used as directed by a doctor to prevent and to treat heart attacks, to prevent strokes, and to treat arthritis or inflammation. How should I use this medicine? Take this medicine by mouth with a glass of water. Follow the directions on the package or prescription label. You can take this medicine with or without food. If it upsets your stomach, take it with food. Do not take your medicine more often than directed. Talk to your emergency preparedness manager regarding the use of this medicine in children. While this drug may be prescribed for children as young as 12 years of age for selected conditions, precautions do apply. Children and teenagers should not use this medicine to treat chicken pox or flu symptoms unless directed by a doctor. Patients over 65 years old may have a stronger reaction and need a smaller dose. What side effects may I notice from receiving this medicine? Side effects that you should report to your doctor or health direct care supervisor as soon as possible: allergic reactions like skin rash, itching or hives, swelling of the face, lips, or tongue breathing problems changes in hearing, ringing in the ears confusion general ill feeling or flu-like symptoms pain on swallowing redness, blistering, peeling or loosening of the skin, including inside the mouth or nose signs and symptoms of bleeding such as bloody or black, tarry stools; red or dark-brown urine; spitting up blood or brown material that looks like coffee grounds; red spots on the skin; unusual bruising or bleeding from the eye, gums, or nose trouble passing urine or change in the amount of urine unusually weak or tired yellowing of the eyes or skin Side effects that usually do not require medical attention (report to your doctor or health direct care supervisor if they continue or are bothersome): diarrhea or constipation nausea, vomiting stomach gas, heartburn What may interact with this medicine? Do not take this medicine with any of the following medications: cidofovir ketorolac probenecid This medicine may also interact with the following medications: alcohol alendronate bismuth subsalicylate flavocoxid herbal supplements like feverfew, garlic, julio, ginkgo biloba, horse chestnut medicines for diabetes or glaucoma like acetazolamide, methazolamide medicines for gout medicines that treat or prevent blood clots like enoxaparin, heparin, ticlopidine, warfarin other aspirin and aspirin-like medicines NSAIDs, medicines for pain and inflammation, like ibuprofen or naproxen pemetrexed sulfinpyrazone varicella live vaccine What if I miss a dose? If you are taking this medicine on a regular schedule and miss a dose, take it as soon as you can. If it is almost time for your next dose, take only that dose. Do not take double or extra doses. Where should I keep my medicine? Keep out of the reach of children. Store at room temperature between 15 and 30 degrees C (59 and 86 degrees F). Protect from heat and moisture. Do not use this medicine if it has a strong vinegar smell. Throw away any unused medicine after the expiration date. What should I tell my health care provider before I take this medicine? They need to know if you have any of these conditions: anemia asthma bleeding problems child with chickenpox, the flu, or other viral infection diabetes gout if you frequently drink alcohol containing drinks kidney disease liver disease low level of vitamin K lupus smoke tobacco stomach ulcers or other problems an unusual or allergic reaction to aspirin, tartrazine dye, other medicines, dyes, or preservatives or trying to get breast-feeding What should I watch for while using this medicine? If you are treating yourself for pain, tell your doctor or health direct care supervisor if the pain lasts more than 10 days, if it gets worse, or if there is a new or different kind of pain. Tell your doctor if you see redness or swelling. Also, check with your doctor if you have a fever that lasts for more than 3 days. Only take this medicine to prevent heart attacks or blood clotting if prescribed by your doctor or health direct care supervisor. Do not take aspirin or aspirin-like medicines with this medicine. Too much aspirin can be dangerous. Always read the labels carefully. This medicine can irritate your stomach or cause bleeding problems. Do not smoke cigarettes or drink alcohol while taking this medicine. Do not lie down for 30 minutes after taking this medicine to prevent irritation to your throat. If you are scheduled for any medical or dental procedure, tell your healthcare provider that you are taking this medicine. You may need to stop taking this medicine before the procedure. You have been given the following additional information: Chest Pain, Uncertain Cause Hypertension, To Be Confirmed Aspirin Oral tablet (Electronically signed by Yash Hilton Dr. 10/03/2016 7:42)
--- NOTE | 2016-10-03 07:42 | ED MAR SUMMARY ---
..... Medication Administration Record [address] [place] [address] Patient: RACHELLE LEYVA Visit ID: [id number] 50y, M Weight: 118.8 kg Height/Length: 72 in BMI: 35.6 ALLERGIES: No Known Drug Allergy Given 20:11 10/02/2016 Crys Murillo R.N. Medication Administered: ASPIRIN [PO], Dose: 325 mg Tablets PO. Medication Ordered: Aspirin PO 325 mg (NOW).
--- NOTE | 2016-10-03 07:42 | ED MED RECONCILIATION SUMMARY ---
Patient: RACHELLE LEYVA Medication Reconciliation Report [facility] VisitID: [id number] [address] [place] [address] 50y, M Registration Date/Time: 10/02/2016 Weight: 118.8 kg Height/Length: 72 in. BMI: 35.6 ALLERGIES: No Known Drug Allergy The patient's Home Medications are listed below: NONE. The source(s) of the original Home Medication information: Not obtained. The following Medications were given to the patient in the Emergency Department: Aspirin [PO] PO 325 mg, administered: 10/02/2016 8:11:00 PM The following Medications were prescribed to the patient: Aspirin 81 mg (available over the counter): take 1 orally every 24 hours. Dispense thirty (30). No refills. -- Yash Hilton Dr.
--- NOTE | 2016-10-03 07:42 | ED MAR SUMMARY ---
..... Medication Administration Record [address] [place] [address] Patient: RACHELLE LEYVA Visit ID: [id number] 50y, M Weight: 118.8 kg Height/Length: 72 in BMI: 35.6 ALLERGIES: No Known Drug Allergy Given 20:11 10/02/2016 Crys Murillo R.N. Medication Administered: ASPIRIN [PO], Dose: 325 mg Tablets PO. Medication Ordered: Aspirin PO 325 mg (NOW).
--- NOTE | 2016-10-03 07:42 | ED DISCHARGE INSTRUCTIONS ---
Patient: RACHELLE LEYVA General Instructions [facility] VisitID: [id number] [address] [place] [address] 50y, M Registration Date/Time: 10/02/2016 Chest pain characterized as "discomfort" .12 lead EKG performed. (left sided). 10/02/2016 22:16 BP: 167/108. HR: 87. RR: 18. O2 saturation: 96%. Pain level now: 11/21. Hypertensive. Oxygen saturation normal. Essential hypertension. INSTRUCTIONS Warnings: GENERAL WARNINGS: Return or contact your physician immediately if your condition worsens or changes unexpectedly, if not improving as expected, or if other problems arise. SPECIFICALLY, return if you develop chest, neck, jaw, shoulder, arm, or back pain, difficulty breathing, a fluttering sensation in your chest, lightheadedness, fainting, excessive fatigue, or sudden sweating. Your Current Medications: CONTINUE TAKING THE FOLLOWING MEDICATIONS: None*. OTC Medications: Aspirin 81 mg (available over the counter): take 1 orally every 24 hours. Dispense thirty (30). No refills. Follow-up: Return to the emergency department as needed. Follow up with your doctor in three days. Reason for referral: recheck today's concerns. Summary of care provided to patient via paper. Screening today revealed the patient's blood pressure to be in the normal range. The patient should follow up with a primary care provider for blood pressure management. Understanding of the discharge instructions verbalized by patient. Follow-up with: Diana Ramos MD, Cardiology, , [facility] Cardiology [facility], [address] [place] [address] [address] [place] [phone]; Marck Ruiz MD, Cardiology, , [facility], [address] [phone] Follow up in three days. Reason for referral: Recheck today's concerns. Summary of care provided to patient. left message on phone voice mail. ADDITIONAL INFORMATION Chest Pain, Uncertain Cause Chest pain can happen for a number of reasons. Sometimes the cause can not be determined. If yourcondition does not seem serious, and your pain does not appear to be coming from your heart, your doctor may recommend watching it closely. Sometimes the signs of a serious problem take more time to appear. Therefore, watch for the warning signs listed below. Home care After your visit, follow these recommendations: Rest today and avoid strenuous activity. Take any prescribed medicine as directed. Follow-up care Follow up with your doctor or this facility as instructed or if you do not start to feel better within 24 hours. Call 911 Get immediate medical attention if any of the following occur: A change in the type of pain: if it feels different, becomes more severe, lasts longer, or begins to spread into your shoulder, arm, neck, jaw or back Shortness of breath or increased pain with breathing Weakness, dizziness, or fainting Rapid heart beat Get prompt medical attention Call your doctor right away if any of the following occur: Cough with dark colored sputum (phlegm) or blood Fever of 100.4F(38C) or higher, or as directed by your health care provider Swelling, pain or redness in one leg High Blood Pressure -- To Be Confirmed [No Tx] Your blood pressure was higher today than normal. Sometimes anxiety or pain can cause a temporary rise in blood pressure that later returns to normal. If your blood pressure is high on one measurement, this does not mean that you have hypertension (a chronic illness). However, you must have your blood pressure measured again within the next few days to find out if its still high. A normal blood pressure is 120/80 or less. The first (top) number is the "systolic" pressure. The second (bottom) number is the "diastolic" pressure. Hypertension exists when either the top number is 140 or higher, OR the bottom number is 90 or higher on repeated measurements. Blood pressure in the range of 120-140 (systolic) or 80-89 (diastolic) is considered "pre-hypertension". This means your are at risk for getting hypertension. You should have regular blood pressure checks to be sure your blood pressure is not rising. Home Care: Measure your blood pressure on 3 different days and write down the results. This can be done at your doctor's office or this facility. Some pharmacies and grocery stores offer automated blood pressure machines for your use. Follow Up: If your blood pressure is "high" (over 120/80) on 2 out of 3 days, you will need to follow up with your doctor for further evaluation and treatment. DO NOT PUT THIS OFF! Untreated high blood pressure increases the risk for heart attack, also known as acute myocardial infarction, or AMI, and stroke. It is a treatable condition. Get Prompt Medical Attention if any of the following occur: Chest pain or shortness of breath Severe headache Throbbing or rushing sound in the ears Nosebleed Sudden severe abdominal pain Extreme drowsiness, confusion or fainting Dizziness or vertigo (dizziness with spinning sensation) Weakness of an arm or leg or one side of the face Difficulty with speech or vision Aspirin Oral tablet What is this medicine? ASPIRIN ( pir in) is a pain reliever. It is used to treat mild pain and fever. This medicine is also used as directed by a doctor to prevent and to treat heart attacks, to prevent strokes, and to treat arthritis or inflammation. How should I use this medicine? Take this medicine by mouth with a glass of water. Follow the directions on the package or prescription label. You can take this medicine with or without food. If it upsets your stomach, take it with food. Do not take your medicine more often than directed. Talk to your casting finisher regarding the use of this medicine in children. While this drug may be prescribed for children as young as 12 years of age for selected conditions, precautions do apply. Children and teenagers should not use this medicine to treat chicken pox or flu symptoms unless directed by a doctor. Patients over 65 years old may have a stronger reaction and need a smaller dose. What side effects may I notice from receiving this medicine? Side effects that you should report to your doctor or health healthcare liaison as soon as possible: allergic reactions like skin rash, itching or hives, swelling of the face, lips, or tongue breathing problems changes in hearing, ringing in the ears confusion general ill feeling or flu-like symptoms pain on swallowing redness, blistering, peeling or loosening of the skin, including inside the mouth or nose signs and symptoms of bleeding such as bloody or black, tarry stools; red or dark-brown urine; spitting up blood or brown material that looks like coffee grounds; red spots on the skin; unusual bruising or bleeding from the eye, gums, or nose trouble passing urine or change in the amount of urine unusually weak or tired yellowing of the eyes or skin Side effects that usually do not require medical attention (report to your doctor or health healthcare liaison if they continue or are bothersome): diarrhea or constipation nausea, vomiting stomach gas, heartburn What may interact with this medicine? Do not take this medicine with any of the following medications: cidofovir ketorolac probenecid This medicine may also interact with the following medications: alcohol alendronate bismuth subsalicylate flavocoxid herbal supplements like feverfew, garlic, julio, ginkgo biloba, horse chestnut medicines for diabetes or glaucoma like acetazolamide, methazolamide medicines for gout medicines that treat or prevent blood clots like enoxaparin, heparin, ticlopidine, warfarin other aspirin and aspirin-like medicines NSAIDs, medicines for pain and inflammation, like ibuprofen or naproxen pemetrexed sulfinpyrazone varicella live vaccine What if I miss a dose? If you are taking this medicine on a regular schedule and miss a dose, take it as soon as you can. If it is almost time for your next dose, take only that dose. Do not take double or extra doses. Where should I keep my medicine? Keep out of the reach of children. Store at room temperature between 15 and 30 degrees C (59 and 86 degrees F). Protect from heat and moisture. Do not use this medicine if it has a strong vinegar smell. Throw away any unused medicine after the expiration date. What should I tell my health care provider before I take this medicine? They need to know if you have any of these conditions: anemia asthma bleeding problems child with chickenpox, the flu, or other viral infection diabetes gout if you frequently drink alcohol containing drinks kidney disease liver disease low level of vitamin K lupus smoke tobacco stomach ulcers or other problems an unusual or allergic reaction to aspirin, tartrazine dye, other medicines, dyes, or preservatives or trying to get breast-feeding What should I watch for while using this medicine? If you are treating yourself for pain, tell your doctor or health healthcare liaison if the pain lasts more than 10 days, if it gets worse, or if there is a new or different kind of pain. Tell your doctor if you see redness or swelling. Also, check with your doctor if you have a fever that lasts for more than 3 days. Only take this medicine to prevent heart attacks or blood clotting if prescribed by your doctor or health healthcare liaison. Do not take aspirin or aspirin-like medicines with this medicine. Too much aspirin can be dangerous. Always read the labels carefully. This medicine can irritate your stomach or cause bleeding problems. Do not smoke cigarettes or drink alcohol while taking this medicine. Do not lie down for 30 minutes after taking this medicine to prevent irritation to your throat. If you are scheduled for any medical or dental procedure, tell your healthcare provider that you are taking this medicine. You may need to stop taking this medicine before the procedure. You have been given the following additional information: Chest Pain, Uncertain Cause Hypertension, To Be Confirmed Aspirin Oral tablet (Electronically signed by Yash Hilton Dr. 10/03/2016 7:42)
--- NOTE | 2016-10-03 07:42 | ED MED RECONCILIATION SUMMARY ---
Patient: RACHELLE LEYVA Medication Reconciliation Report [facility] VisitID: [id number] [address] [place] [address] 50y, M Registration Date/Time: 10/02/2016 Weight: 118.8 kg Height/Length: 72 in. BMI: 35.6 ALLERGIES: No Known Drug Allergy The patient's Home Medications are listed below: NONE. The source(s) of the original Home Medication information: Not obtained. The following Medications were given to the patient in the Emergency Department: Aspirin [PO] PO 325 mg, administered: 10/02/2016 8:11:00 PM The following Medications were prescribed to the patient: Aspirin 81 mg (available over the counter): take 1 orally every 24 hours. Dispense thirty (30). No refills. -- Yash Hilton Dr.
== END 2016-10-02 22:33 | disposition home or self-care (01) ==
LOC: ED SRH 19:27
DX: R07.89 Other chest pain (principal); I10 Essential (primary) hypertension
CPT/HCPCS: 90004; 90065; 90100; 90616; 91320; 91556; 91585; 92235; 92530; 92610; 92720; 93004; 95059; 95150